=== PATIENT | female | born 1985 | race Caucasian/White ===

== ENCOUNTER 2019-10-04 21:16 | Emergency (ER) | payer OTHER ==
[~2019-10-04] VITALS: Ht 160 cm; Wt 79.5 kg
[2019-10-04 21:24] VITALS: BP 115/79
[2019-10-04] MEDS ORDERED: AMOX-117 PO (21:44)
== END 2019-10-04 21:53 | disposition home or self-care (01) ==
LOC: ER 21:16
DX: S61.231A Puncture wound without foreign body of left index finger without damage to nail, initial encounter (principal); Z79.2 Long term (current) use of antibiotics; W55.01XA Bitten by cat, initial encounter; Y93.89 Activity, other specified; Y92.89 Other specified places as the place of occurrence of the external cause; Y99.8 Other external cause status
CPT/HCPCS: 99283